=== PATIENT | male | born 1980 | race Caucasian/White ===

== ENCOUNTER 2021-11-25 06:56 | Emergency (ER) | payer OTHER ==
[~2021-11-25] VITALS: Ht 177.8 cm; Wt 72.6 kg
[2021-11-25 08:52] VITALS: BP 145/93
== END 2021-11-25 09:02 | disposition left against medical advice (07) ==
LOC: ER 06:56
DX: F10.129 Alcohol abuse with intoxication, unspecified (principal); Y90.9 Presence of alcohol in blood, level not specified; Z76.0 Encounter for issue of repeat prescription

== ENCOUNTER 2021-11-25 10:19 | Emergency (ER) | payer OTHER ==
[~2021-11-25] VITALS: Ht 172.7 cm; Wt 68.0 kg
[2021-11-25 10:23] VITALS: BP 122/74
== END 2021-11-25 10:49 | disposition left against medical advice (07) ==
LOC: ER 10:19
DX: Z53.21 Procedure and treatment not carried out due to patient leaving prior to being seen by health care provider (principal)